=== PATIENT | female | born 1960 | race Caucasian/White ===

== ENCOUNTER 2017-04-18 09:09 | Day surgery (SDC) | payer MEDICAID ==
[~2017-04-18] VITALS: Ht 154.9 cm; Wt 83.5 kg
[~2017-04-18 09:09] MED LIST: ALBU2TAB4 PO; ASPI81TA27 PO; CARB0.5D35 OP; CHOL20007 OR; GABA-494 PO; IBUP600T27 PO; LANS30CA63 PO; LATA0.0015 EACHEYE; LEVO100T8 PO; LISI-646 PO; LORA-622 PO; METF-370 PO; SIMV-8 PO
[2017-04-18] MEDS ORDERED: IOHEXOL 350 MG/ML 100ML IJ ONE (09:14)
[2017-04-18] MEDS ORDERED: LIDOCAINE 2%HCL (LOCAL ANESTH.) INJ 20ML MDV ONE (09:14)
[2017-04-18] MEDS ORDERED: SODIUM CHL 0.9% 0 ML ONE (09:46)
[2017-04-18] MEDS ORDERED: fentaNYL CITRATE 100 MCG/2 ML VL ONE (09:46)
[2017-04-18] MEDS ORDERED: ANGIOMAX 250 MG VIAL IV ONE (09:46)
[2017-04-18] MEDS ORDERED: MIDAZOLAM HCL 1MG/1ML-2 ML VIAL ONE (09:46)
[2017-04-18] MEDS ORDERED: EPTIFIBATIDE INJ (2MG/ML) 10ML VIAL IV ONE (09:48)
[2017-04-18] MEDS ORDERED: methylPREDNISolone SOD SUCC 125 MG/2 ML VL ONE (09:59)
[2017-04-18] MEDS ORDERED: FAMOTIDINE (10MG/ML) 2ML VL IV ONE (09:59)
[2017-04-18] MEDS ORDERED: diphenhdrAMINE HCL 50 MG/1 ML VL ONE (09:59)
== END 2017-04-18 13:20 | disposition home or self-care (01) ==
LOC: CATH 09:09
PROVIDERS: ATTEND Internal Medicine Cardiovascular Disease
DX: I25.10 Atherosclerotic heart disease of native coronary artery without angina pectoris (principal); I10 Essential (primary) hypertension; E78.00 Pure hypercholesterolemia, unspecified; E11.9 Type 2 diabetes mellitus without complications; C73 Malignant neoplasm of thyroid gland; Z91.013 Allergy to seafood
CPT/HCPCS: 93458; C1760; C1894; J1200; J1644; J2930; J3010; J7030; Q9967; 93005; 99152; 99153; J2250; J3490